=== PATIENT | female | born 1945 | race Caucasian/White ===

== ENCOUNTER 2017-02-12 19:53 | Inpatient (IN) | payer MEDICARE ==
[~2017-02-12] VITALS: Ht 154.9 cm; Wt 64.5 kg
[~2017-02-12 19:53] MED LIST: ANTIVERT25 MG PO; HABITROL 21 MG P1 EA TOP; IMDUR ER TAB 3030 MG PO; LIPITOR20 MG PO; LISINOPRIL10 MG PO; LOPRESSOR 25 MG25 MG PO; NITROSTAT0.4 MG SL; NORVASC 5 MG TAB5 MG PO; PROVENTIL HFA 61 INH INH; SPIRIVA HANDIH18 MCG INH; TYLENOL 325MG325 MG PO
[2017-02-12 21:22] LABS: HEMOGLOBIN 13.8 gm/dl (12.3-15.3); RED BLOOD COUNT 4.47 M/UL (4.00-5.10); WHITE BLOOD COUNT 12.3 K/UL (4.5-11.0)
[2017-02-12 21:36] LABS: BUN/CREATININE RATIO 12 (0-10)
[2017-02-13] MEDS ORDERED: VENTOLIN/PROVE0.5 ML INH (02:13)
[2017-02-13] MEDS ORDERED: NAPROSYN500 MG PO (02:14)
[2017-02-13] MEDS ORDERED: ULTRAM50 MG PO (02:14)
[2017-02-14 05:49] LABS: HEMOGLOBIN 12.6 gm/dl (12.3-15.3); RED BLOOD COUNT 4.13 M/UL (4.00-5.10)
[2017-02-14 06:01] LABS: BUN/CREATININE RATIO 20 (0-10)
[2017-02-15 06:23] LABS: BUN/CREATININE RATIO 23 (0-10)
[2017-02-15] MEDS ORDERED: LEVAQUIN750 MG PO ×2 (12:44→12:48)
[2017-02-15] MEDS ORDERED: BREO ELLIPTA 11 EACH INH ×2 (12:45→12:48)
[2017-02-15] MEDS ORDERED: ALBUTEROL INH (12:47)
[2017-02-15] MEDS ORDERED: MEDROL4 MG PO (12:48)
== END 2017-02-15 13:45 | disposition home or self-care (01) | DRG 871 ==
LOC: ER1 19:53 → MED SURG 4 23:00 → ER1 23:00 → ZEROF 23:00 → MED SURG 4 02-13 02:03
PROVIDERS: Emergency Medicine; Internal Medicine; Physician Assistant; ADMIT Internal Medicine
DX: A41.9 Sepsis, unspecified organism (principal); J96.01 Acute respiratory failure with hypoxia; J44.0 Chronic obstructive pulmonary disease with (acute) lower respiratory infection; J44.1 Chronic obstructive pulmonary disease with (acute) exacerbation; J10.1 Influenza due to other identified influenza virus with other respiratory manifestations; E87.6 Hypokalemia; I25.10 Atherosclerotic heart disease of native coronary artery without angina pectoris; I10 Essential (primary) hypertension; E78.5 Hyperlipidemia, unspecified; I45.81 Long QT syndrome; F17.200 Nicotine dependence, unspecified, uncomplicated; Z85.828 Personal history of other malignant neoplasm of skin; Z79.1 Long term (current) use of non-steroidal anti-inflammatories (NSAID); Z79.899 Other long term (current) drug therapy; Z88.0 Allergy status to penicillin; Z88.8 Allergy status to other drugs, medicaments and biological substances; Z90.49 Acquired absence of other specified parts of digestive tract; Z98.890 Other specified postprocedural states; Z80.1 Family history of malignant neoplasm of trachea, bronchus and lung; Z82.49 Family history of ischemic heart disease and other diseases of the circulatory system
CPT/HCPCS: 36415; 36600; 71010; 71020; 80048; 80053; 81001; 82803; 83605; 83690; 83880; 84132; 84484; 85025; 85027; 85610; 85730; 87040; 87086; 93005; 94640; 94664; 96365; 96366; 96375; 99291; G0378; J1650; J1956; J2920; J2930; J7030

== ENCOUNTER → 2017-03-23 | Outpatient (CLI) | payer MEDICARE ==
[~2017-03-23] MED LIST changes: +ALBUTEROL INH; +BREO ELLIPTA 11 EACH INH; +LEVAQUIN750 MG PO; +MEDROL4 MG PO; +NAPROSYN500 MG PO; +ULTRAM50 MG PO; +VENTOLIN/PROVE0.5 ML INH
== END ==
LOC: HEART 5 14:06
DX: J44.9 Chronic obstructive pulmonary disease, unspecified (principal)
CPT/HCPCS: 94060; 94729